=== PATIENT | female | born 1995 ===

== ENCOUNTER 2020-09-10 05:26 | Inpatient (IN) | payer OTHER ==
[~2020-09-10] VITALS: Ht 160 cm; Wt 3.2 kg
[2020-09-10] MEDS ORDERED: PRENATAL TABLE1 EAC1 PO (06:42)
== END 2020-09-14 12:33 | disposition home or self-care (01) | DRG 788 ==
LOC: O/R 05:26 → LDR 05:26 → O/R 09-11 20:00 → OB/GYN 09-11 21:29
PROVIDERS: ADMIT Obstetrics & Gynecology; ATTEND Obstetrics & Gynecology
PROC: 4A1HXFZ Monitoring of Products of Conception, Cardiac Rhythm, External Approach (ICD-10-PCS; 2020-09-11)
PROC: 3E033VJ Introduction of Other Hormone into Peripheral Vein, Percutaneous Approach (ICD-10-PCS; 2020-09-11)
PROC: 10D00Z1 Extraction of Products of Conception, Low, Open Approach (ICD-10-PCS; principal; 2020-09-11 21:00)
DX: O62.1 Secondary uterine inertia (principal); Z3A.40 40 weeks gestation of pregnancy; Z37.0 Single live birth; Z20.828 Contact with and (suspected) exposure to other viral communicable diseases

== ENCOUNTER 2023-11-17 19:47 | Emergency (ER) | payer OTHER ==
[~2023-11-17] VITALS: Ht 167.6 cm; Wt 62.6 kg
[~2023-11-17 19:47] MED LIST: PRENATAL TABLE1 EAC1 PO
[2023-11-17] MEDS ORDERED: EXCEDRIN MIGRA1 EAC1 PO (21:30)
== END 2023-11-17 21:34 | disposition home or self-care (01) ==
LOC: ER 19:47
DX: G43.909 Migraine, unspecified, not intractable, without status migrainosus (principal)